=== PATIENT | male | born 1960 | race African-American/Black ===

== ENCOUNTER 2023-12-22 16:57 | Emergency (ER) | payer BC ==
[~2023-12-22] VITALS: Ht 170.2 cm; Wt 77.1 kg
[2023-12-22 17:40] VITALS: BP 118/85; TEMP 98.5; O2SAT 98
== END 2023-12-22 21:02 | disposition left against medical advice (07) ==
LOC: ER 17:15
DX: S09.90XA Unspecified injury of head, initial encounter (principal); Z53.21 Procedure and treatment not carried out due to patient leaving prior to being seen by health care provider; X58.XXXA Exposure to other specified factors, initial encounter; Y93.89 Activity, other specified; Y92.89 Other specified places as the place of occurrence of the external cause; Y99.8 Other external cause status